=== PATIENT | male | born 1960 | race Caucasian/White ===

== ENCOUNTER 2018-02-06 14:22 | Emergency (ER) | payer BC ==
[2018-02-06 14:32] VITALS: BP 157/95
--- NOTE | 2018-02-06 15:03 | ED Physician Documentation ---
PD HPI UPPER EXT INJURY - Stated complaint Stated Complaint: HAND PUNCTURE - Chief complaint Chief Complaint: Laceration - History obtained from History obtained from: Patient - History of Present Illness Location: Left (Right-handed gentleman who is up-to-date on tetanus drilled through his left palm between the Fourth and fifth metacarpal heads at home while working just prior to arrival. The Drillbit was not intact and he is concerned for retained foreign body. There is no pain or limited range of motion. No other injuries.) Review of Systems Constitutional: reports: Reviewed and negative Cardiac: reports: Reviewed and negative Respiratory: reports: Reviewed and negative PD PAST MEDICAL HISTORY - Past Medical History Past Medical History: No - Present Medications Home Medications: Ambulatory Orders Medication Instructions Recorded Confirmed Losartan/Hydrochlorothiazide 1 tab PO DAILY 02/06/18 02/06/18 [Hyzaar 100-12.5 Tablet] - Allergies Allergies/Adverse Reactions: Allergies Allergy/AdvReac Type Severity Reaction Status Date / Time Latex, Natural Rubber AdvReac Rash Verified 02/06/18 14:32 PD ED PE NORMAL - Vitals Vital signs reviewed: Yes - General General: Alert and oriented X 3, No acute distress - Extremities Extremities: Other (Puncture wounds in the left hand, both dorsal and plantar right between the fourth and fifth metacarpal heads without bony tenderness, palpable foreign body or limited range of motion. Normal neurovascular status in the digits.) - Neuro Neuro: Alert and oriented X 3, Normal speech Results - Vitals Vitals: Vital Signs - 24 hr 02/06/18 14:28 Temperature 36 C L Heart Rate 69 Respiratory 16 Rate Blood Pressure 157/95 H O2 Saturation 97 Oxygen O2 Source Room air - Rads (name of study) 2v R hand Radiology: EMP read contemporaneously (No FB noted) PD MEDICAL DECISION MAKING - ED course ED course: The wound was irrigated and dressed. He inquired about antibiotics but since he is not diabetic they are not indicated. Tetanus is up-to-date. No foreign body on x-ray. - Sepsis Event Vital Signs: Vital Signs - 24 hr 02/06/18 14:28 Temperature 36 C L Heart Rate 69 Respiratory 16 Rate Blood Pressure 157/95 H O2 Saturation 97 Oxygen O2 Source Room air Departure - Departure Disposition: 01 Home, Self Care Clinical Impression: Puncture wound of left hand Qualifiers: Encounter type: sequela Foreign body presence: without foreign body Qualified Code(s): S61.432S - Puncture wound without foreign body of left hand, sequela Condition: Good Record reviewed to determine appropriate education?: Yes Instructions: ED Wound Puncture General Comments: Your blood pressure was elevated today on check into the emergency department. This does not mean that you have hypertension, it is a common phenomenon to come to the emergency department and have elevated blood pressure. I recommend that you see your primary care physician within the week to have it rechecked when you are feeling better. Discharge Date/Time: 02/06/18 15:58
--- NOTE | 2018-02-06 16:10 | XRAY Report ---
Reason: poss metal fb Procedure Date: 02/06/2018 Accession Number: [id number] / [id number] Procedure: XR - Hand 2 View LT CPT Code: FULL RESULT: EXAM: LEFT HAND RADIOGRAPHY EXAM DATE: 02/06/2018 03:24 PM. CLINICAL HISTORY: Dri1l bit versus hand in area of distal fifth metacarpal. Possible metallic foreign body. COMPARISON: None. TECHNIQUE: 2 views. FINDINGS: Bones: Normal. No fractures or bone lesions. Joints: Normal. No subluxations. Soft Tissues: Possible swelling along the medial aspect of the hand. No radiopaque or radiographically evident radiolucent foreign body. IMPRESSION: No acute bony abnormality or radiographically evident retained foreign body. [facility]
== END 2018-02-06 15:58 | disposition home or self-care (01) ==
LOC: ED 14:22
DX: S61.432A Puncture wound without foreign body of left hand, initial encounter (principal); R03.0 Elevated blood-pressure reading, without diagnosis of hypertension; W29.8XXA Contact with other powered hand tools and household machinery, initial encounter; Y92.009 Unspecified place in unspecified non-institutional (private) residence as the place of occurrence of the external cause
CPT/HCPCS: 99282; 99283